=== PATIENT | male | born 1985 | race Native Hawaiian/Other Pacific Islander ===

== ENCOUNTER 2016-09-29 21:14 | Outpatient (CLI) | payer OTHER | END 2016-09-29 21:18 | disposition short-term general hospital (02) | LOC: AMB 21:14 | DX: S61.512A Laceration without foreign body of left wrist, initial encounter (principal); S61.511A Laceration without foreign body of right wrist, initial encounter; X78.8XXA Intentional self-harm by other sharp object, initial encounter; Y92.098 Other place in other non-institutional residence as the place of occurrence of the external cause | CPT/HCPCS: A0425; A0427 ==

== ENCOUNTER 2016-09-29 21:25 | Emergency (ER) | payer OTHER ==
[~2016-09-29] VITALS: Ht 172.7 cm; Wt 65.8 kg
[2016-09-29 22:04] LABS: PLATELET COUNT 264 K/uL (142-355)
[2016-09-29 22:14] LABS: POTASSIUM 3.7 mmol/L (3.6-5.2); SODIUM 139 mmol/L (136-145)
[2016-09-30 07:59] VITALS: TEMP 98.1
[2016-09-30 10:07] VITALS: BP 116/82
== END 2016-09-30 10:10 | disposition home or self-care (01) ==
LOC: ED 21:25
PROVIDERS: Specialist
DX: F10.129 Alcohol abuse with intoxication, unspecified (principal); R45.851 Suicidal ideations; S61.512A Laceration without foreign body of left wrist, initial encounter; S61.511A Laceration without foreign body of right wrist, initial encounter; X83.8XXA Intentional self-harm by other specified means, initial encounter
CPT/HCPCS: 36415; 80053; 80307; 80320; 80329; 81000; 85027; 99285; G0479

== ENCOUNTER 2018-03-02 15:13 | Emergency (ER) | payer OTHER ==
[~2018-03-02] VITALS: Ht 175.3 cm; Wt 59.0 kg
[2018-03-02 15:15] VITALS: TEMP 100
[2018-03-02 15:53] LABS: PLATELET COUNT 171 K/uL (142-355)
[2018-03-02 16:00] LABS: POTASSIUM 3.9 mmol/L (3.6-5.2)
[2018-03-02 16:15] VITALS: BP 112/63
== END 2018-03-02 16:30 | disposition home or self-care (01) ==
LOC: ED 15:13
PROVIDERS: Family Medicine
DX: M54.5 Low back pain (principal); F15.10 Other stimulant abuse, uncomplicated; F12.90 Cannabis use, unspecified, uncomplicated
CPT/HCPCS: 36415; 80053; 80307; 85027; 96374; 99284; J1885

== ENCOUNTER 2020-07-16 07:36 | Emergency (ER) | payer OTHER ==
[~2020-07-16] VITALS: Ht 175.3 cm; Wt 59.0 kg
[2020-07-16 07:36] VITALS: TEMP 98.2
[2020-07-16 08:10] LABS: PLATELET COUNT 199 K/uL (142-355)
[2020-07-16 08:17] LABS: POTASSIUM 4.1 mmol/L (3.6-5.2)
[2020-07-16 08:23] LABS: PARTIAL THROMBOPLASTIN TIME 29.8 SECONDS (24.5-33.6)
[2020-07-16 11:44] VITALS: BP 104/66
== END 2020-07-16 11:44 | disposition home or self-care (01) ==
LOC: ED 07:36
PROVIDERS: Hospitalist
DX: S39.011A Strain of muscle, fascia and tendon of abdomen, initial encounter (principal); S39.013A Strain of muscle, fascia and tendon of pelvis, initial encounter; F19.90 Other psychoactive substance use, unspecified, uncomplicated; Z03.818 Encounter for observation for suspected exposure to other biological agents ruled out; X50.9XXA Other and unspecified overexertion or strenuous movements or postures, initial encounter; Y92.89 Other specified places as the place of occurrence of the external cause
CPT/HCPCS: 80053; 80307; 81000; 83605; 83690; 85027; 85610; 85730; 87040; 87205; 87635; 96360; 96365; 96366; 96375; 96376; 99284; J1885; J1956; J2270; J2405; U0003

== ENCOUNTER 2020-07-16 16:30 | Emergency (ER) | payer OTHER ==
[~2020-07-16] VITALS: Ht 175.3 cm; Wt 59.0 kg
[2020-07-16 16:50] VITALS: BP 155/100; TEMP 98.5
== END 2020-07-16 19:45 | disposition home or self-care (01) ==
LOC: ED 16:30
DX: M54.5 Low back pain (principal); G89.29 Other chronic pain; F19.10 Other psychoactive substance abuse, uncomplicated
CPT/HCPCS: 99282